=== PATIENT | male | born 1955 | race Caucasian/White ===

== ENCOUNTER 2019-06-19 14:44 | Emergency (ER) | payer MEDICARE ==
[2019-06-19] MEDS ORDERED: ONDANSETRON 4 MG TAB.RAPDIS PO ONE (15:47)
--- NOTE | 2019-06-19 16:11 | ER Document Report ---
HPI - HPI Time Seen by Provider: 06/19/19 16:08 Pain Level: 4 Notes: CHIEF COMPLAINT: Seizure HPI: 64-year-old male presenting by EMS for evaluation of seizure today. Patient was shopping for a car, began to stutter and then had a seizure. Patient states he remembers stuttering and then remembers being in the ambulance. Patient has a history of seizures for which he is on lamotrigine. Patient states he does take his medications consistently. He has not had fever or recent illness. indicates that patient does have occasional grand mal seizures which they believe this was. Patient states that his son did lower him to the ground. He denies extremity injuries. Denies chest pain nausea vomiting. Denies headache at this time. ROS: See HPI - all other systems were reviewed and are otherwise negative Constitutional: no fever Eyes: no drainage, no blurred vision ENT: no runny nose, no sore throat Cardiovascular: no chest pain Resp: no SOB, no cough GI: no vomiting, no diarrhea, no abdominal pain : no dysuria Integumentary: no rash Allergy: no hives Musculoskeletal: no extremity pain or swelling Neurological: no numbness/tingling, no weakness, positive seizure MEDICATIONS: I agree with the patient medications as charted by the RN. ALLERGIES: I agree with the allergies as charted by the RN. PAST MEDICAL HISTORY/PAST SURGICAL HISTORY: Reviewed and agree as charted by RN. SOCIAL HISTORY: Reviewed and agree as charted by RN. FAMILY HISTORY: No significant familial comorbid conditions directly related to patient complaint EXAM: Reviewed vital signs as charted by RN. CONSTITUTIONAL: Alert and oriented and responds appropriately to questions. Well-appearing; well-nourished, no acute distress HEAD: Normocephalic; atraumatic EYES: PERRL; Conjunctivae clear, sclerae non-icteric. No nystagmus ENT: normal nose; no rhinorrhea; moist mucous membranes; pharynx without lesions noted, no uvula edema or deviation, no tonsillar hypertrophy, phonation normal NECK: Supple without meningismus; non-tender; no cervical lymphadenopathy, no masses CARD: RRR; no murmurs, no clicks, no rubs, no gallops; symmetric distal pulses RESP: Normal chest excursion without splinting or tachypnea; breath sounds clear and equal bilaterally; no wheezes, no rhonchi, no rales, pulse oximetry ABD/GI: Normal bowel sounds; non-distended; soft, non-tender, no rebound, no guarding; no palpable organomegaly or masses. BACK: The back appears normal and is non-tender to palpation, there is no CVA tenderness EXT: Normal ROM in all joints; non-tender to palpation; no cyanosis, no effusions, no edema SKIN: Normal color for age and race; warm; dry; good turgor; no acute lesions noted NEURO: Moves all extremities equally; Motor and sensory function intact PSYCH: The patient's mood and manner are appropriate. Grooming and personal hygiene are appropriate. MDM: 64-year-old male with history of seizures presenting after a seizure that lasted several minutes with a postictal phase that lasted several minutes per the . Patient states he feels completely normal at this time. He is willing to have basic chemistries and urinalysis sent to ensure no abnormalities but he has not had fever or other recent illness. Has no physical complaints otherwise at this time other than some soreness in the calves. - CONSTITUTIONAL Constitutional: DENIES: Fever, Chills - NEURO Neurology: REPORTS: Headache Past Medical History - Social History Smoking Status: Never Smoker Frequency of alcohol use: None Drug Abuse: None Family History: Reviewed & Not Pertinent Patient has suicidal ideation: No Patient has homicidal ideation: No - Past Medical History Cardiac Medical History: Reports: Hx Hypertension Neurological Medical History: Reports: Hx Seizures Endocrine Medical History: Reports: Hx Diabetes Mellitus Type 2 Vertical Provider Document - INFECTION CONTROL TRAVEL OUTSIDE OF THE [place] IN LAST 30 DAYS: No Course - Re-evaluation Re-evalutation: 06/19/19 17:16 Alert oriented no complaints or distress at this time chemistries do not show acute emergent abnormalities. Discussed at length with and family members. Patient has had less sleep more caffeine recently advised him to get more sleep drink less caffeine, he has an appointment on Friday with his neurologist - Vital Signs Vital signs: Temp Pulse Resp BP Pulse Ox 98.1 F 86 20 140/88 H 95 06/19/19 14:56 06/19/19 14:56 06/19/19 14:56 06/19/19 14:56 06/19/19 14:56 - Laboratory Result Diagrams: 06/19/19 16:28 Discharge - Discharge Clinical Impression: Seizure Condition: Stable Disposition: HOME, SELF-CARE Additional Instructions: Follow-up with your neurologist on Friday for further evaluation. Less caffeine more sleep as discussed
[2019-06-19 16:43] LABS: APPEARANCE,URINE CLEAR; BILIRUBIN,URINE NEGATIVE (NEGATIVE); COLOR,URINE YELLOW; GLUCOSE, URINE NEGATIVE (NEGATIVE); KETONES,URINE NEGATIVE (NEGATIVE); LEUKOCYTE ESTERASE,URINE NEGATIVE (NEGATIVE); NITRITE,URINE NEGATIVE (NEGATIVE); PROTEIN,URINE 100 mg/dL (NEGATIVE); URINE SPECIFIC GRAVITY 1.018; UROBILINOGEN,URINE NEGATIVE mg/dL (<2.0)
[2019-06-19 17:06] LABS: ALBUMIN 4.8 g/dL (3.5-5.0); ALKALINE PHOSPHATASE 51 U/L (38-126); ANION GAP 14 (5-19); ASPARTATE AMINO TRANSFERASE 40 U/L (17-59); BILIRUBIN,DIRECT 0.2 mg/dL (0.0-0.4); BILIRUBIN,TOTAL 0.6 mg/dL (0.2-1.3); BLOOD UREA NITROGEN 15 mg/dL (7-20); CALCIUM 9.7 mg/dL (8.4-10.2); CARBON DIOXIDE 26 mmol/L (22-30); CHLORIDE 100 mmol/L (98-107); GLUCOSE 145 mg/dL (75-110); POTASSIUM 3.7 mmol/L (3.6-5.0); TOTAL PROTEIN 7.6 g/dL (6.3-8.2)
[2019-06-19 18:06] VITALS: BP 140/71
== END 2019-06-19 17:50 | disposition home or self-care (01) ==
LOC: ER 14:44
DX: R56.9 Unspecified convulsions (principal); Z79.899 Other long term (current) drug therapy; R51 Headache; I10 Essential (primary) hypertension; E11.9 Type 2 diabetes mellitus without complications
CPT/HCPCS: 99284; 36415; 83735; 80053; 81001; A9270; S0119